=== PATIENT | female | born 1950 | race Caucasian/White ===

== ENCOUNTER → 2016-08-29 | Outpatient (CLI) | payer OTHER | LOC: BHFA 09:15 | PROVIDERS: ATTEND Internal Medicine Cardiovascular Disease | DX: R06.02 Shortness of breath (principal); R06.00 Dyspnea, unspecified; I10 Essential (primary) hypertension ==

== ENCOUNTER 2016-10-22 07:43 | Day surgery (SDC) | payer OTHER ==
[2016-10-22] MEDS ORDERED: DIAZEPAM 5 MG TAB PO ONE (07:57)
[2016-10-22] MEDS ORDERED: ASPIRIN EC 325 MG TAB PO ONE ×2 (07:57→08:26)
[2016-10-22] MEDS ORDERED: diphenhydrAMINE 25 MG CAP PO ONE ×2 (07:57→08:26)
[2016-10-22] MEDS ORDERED: NS 1,000 ML IV ONE (07:57)
[2016-10-22] MEDS ORDERED: FAMOTIDINE 20 MG TAB PO ONE (07:57)
--- NOTE | 2016-10-22 08:22 | CPEKG ---
Heart Rate: 62 RR Interval: 968 P-R Interval: 156 QRSD Interval: 84 QT Interval: 432 QTC Interval: 439 P Heiskell: 50 QRS Heiskell: 2 T Wave Heiskell: 65 EKG Severity - NORMAL ECG - EKG Impression: SINUS RHYTHM Electronically Signed By: Prasanna Enamorado 22-Oct-2016 09:04:51
[2016-10-22] MEDS ORDERED: FAMOTIDINE 20 MG TAB ONE (08:26)
[2016-10-22] MEDS ORDERED: DIAZEPAM 5 MG TAB ONE (08:27)
[2016-10-22 08:41] LABS: ADD DIFF? NO; ADD MORPH? NO; ADD SCAN? NO; ATYPICAL LYMPHOCYTE FLAG 10 (0-99); FRAGMENT RBC FLAG 0 (0-99); HEMATOCRIT 40.9 % (38.0-47.0); HEMOGLOBIN 14.2 g/dL (12.6-16.3); LEFT SHIFT FLG 0 (0-99); LIPEMIA HEMOLYSIS FLAG 90 (0-99); MEAN CELL HEMOGLOBIN 29.8 pg (27.9-34.1); MEAN CELL HEMOGLOBIN CONCENTR. 34.7 g/dL (32.4-36.7); MEAN CELL VOLUME 85.9 fL (81.5-99.8); MEAN PLATELET VOLUME 9.9 fL (8.7-11.7); PLATELET CLUMPS FLAG 0 (0-99); PLATELET COUNT 250 10^3/uL (150-400); RED BLOOD CELL COUNT 4.76 10^6/uL (4.18-5.33); RED CELL DISTRIBUTION WIDTH 13.6 % (11.5-15.2)
[2016-10-22 08:46] LABS: ANION GAP 10 mEq/L (8-16); CARBON DIOXIDE 28 mEq/l (22-31); CHLORIDE 100 mEq/L (97-110); CHOLESTEROL 189 mg/dL (140-220); CHOLESTEROL/HDL RATIO 1.78 RATIO (1.00-4.44); CREATININE 0.8 mg/dL (0.6-1.0); GLOMERULAR FILTRATION RATE > 60; GLUCOSE 101 mg/dL (70-100); HIGH DENSITY LIPOPROTEIN 106 mg/dL (40-85); LDL/HDL RATIO 0.57 RATIO (1.00-3.22); LOW DENSITY LIPOPROTEIN 60 mg/dL (80-100); NON-HIGH DENSITY LIPOPROTEIN 83 mg/dL (90-129); POTASSIUM 3.4 mEq/L (3.5-5.2); SODIUM 138 mEq/L (134-144); TRIGLYCERIDE 119 mg/dL (35-135); VERY LOW DENSITY LIPOPROTEINS 23 mg/dL (8-25)
[2016-10-22 08:59] LABS: INR 0.97 (0.83-1.16); PROTIME(PATIENT) 12.8 SEC (12.0-15.0)
[2016-10-22] MEDS ORDERED: LIDOCAINE 1% 300 MG/30 ML SDV ONE (09:38)
[2016-10-22] MEDS ORDERED: fentaNYL 100 MCG/2 ML INJ ONE (09:38)
[2016-10-22] MEDS ORDERED: IOPAMIDOL (ISOVUE-370) 150 ML BTL IV ONE (09:39)
[2016-10-22] MEDS ORDERED: MIDAZOLAM 2 MG/2 ML VIAL ONE (09:39)
[2016-10-22] MEDS ORDERED: VERAPAMIL 5 MG/2 ML VIAL ONE (09:39)
[2016-10-22] MEDS ORDERED: HEPARIN 10,000 UNIT/10 ML MDV ONE (09:39)
[2016-10-22] MEDS ORDERED: ONDANSETRON 4 MG/2 ML VIAL IVP PRN (10:29)
[2016-10-22] MEDS ORDERED: NITROGLYCERIN 0.4 MG BTL SL PRN (10:29)
[2016-10-22] MEDS ORDERED: ATROPINE SULFATE 1 MG/10 ML SYR IVP PRN (10:29)
--- NOTE | 2016-10-22 10:33 | PDDXCAT ---
Diagnostic Cath Note - . 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 Indication: Class I/II angina, intolerance to med therapy or failure to respond - Procedure Access: left wrist Procedure: left heart catheterization, coronary angiography, left ventriculogram , right heart catheterization - Materials Left Heart Cath size: 5F Left Heart Cath materials: JL3.5, JR4.0, pigtail, other Right Heart Cath materials: PWP catheter - Findings-Left Heart Catheterization LM: Normal LAD: Normal LCX: Co dominant: Normal RCA: Co dominant: Normal EDP: 10 mm of mercury LVEF: 65 Wall motion: Normal - Findings-Right Heart Catheterization RA: 5 mm of mercury RV: 32/2 mm of mercury PA: 34/9 mm of mercury. Mean of 18 mm of mercury PAOP: 10 mm of mercury Complications: None Estimated blood loss: <50ml Closure method: TR Band Assessment: 1. Angiographically normal coronary arteries. 2. Normal LV systolic function. 3. Normal right heart pressures without evidence of pulmonary hypertension at rest. Patient Problems: Problems Problem Status Onset Shortness of breath Acute
== END 2016-10-22 14:50 | disposition home or self-care (01) ==
LOC: FCATH 07:43
PROVIDERS: ATTEND Internal Medicine Interventional Cardiology
PROC: B2111ZZ Fluoroscopy of Multiple Coronary Arteries using Low Osmolar Contrast (ICD-10-PCS; principal; 2016-10-22)
PROC: B2151ZZ Fluoroscopy of Left Heart using Low Osmolar Contrast (ICD-10-PCS; principal; 2016-10-22)
PROC: 4A023N8 Measurement of Cardiac Sampling and Pressure, Bilateral, Percutaneous Approach (ICD-10-PCS; principal; 2016-10-22)
DX: R06.02 Shortness of breath (principal); I10 Essential (primary) hypertension; E78.5 Hyperlipidemia, unspecified; E03.9 Hypothyroidism, unspecified; I34.1 Nonrheumatic mitral (valve) prolapse
CPT/HCPCS: 93005; 93460; C1769; J1644; J2250; J3010; Q9967

== ENCOUNTER → 2017-01-25 | Outpatient (CLI) | payer OTHER | LOC: FIMAGING 08:56 | PROVIDERS: ATTEND Internal Medicine | DX: Z13.820 Encounter for screening for osteoporosis (principal); E07.9 Disorder of thyroid, unspecified | CPT/HCPCS: G0202 ==

== ENCOUNTER → 2018-01-31 | Outpatient (CLI) | payer OTHER | LOC: FIMAGING 09:00 | PROVIDERS: ATTEND Internal Medicine | DX: Z12.31 Encounter for screening mammogram for malignant neoplasm of breast (principal) ==